=== PATIENT | female | born 1980 | race Caucasian/White ===

== ENCOUNTER 2018-03-01 10:05 | Emergency (ER) | payer OTHER ==
[~2018-03-01] VITALS: Ht 160 cm; Wt 75.3 kg
[~2018-03-01 10:05] MED LIST: ADDERALL 30 MG30 MG PO
[2018-03-01] MEDS ORDERED: ACETAMINOPHEN-1 EAC1 PO (12:02)
[2018-03-01] MEDS ORDERED: NAPROSYN500 MG PO (12:02)
[2018-03-01 12:14] VITALS: BP 125/79
== END 2018-03-01 12:15 | disposition home or self-care (01) ==
LOC: M.ERS 10:05
DX: S93.691A Other sprain of right foot, initial encounter (principal); Z98.890 Other specified postprocedural states; X50.1XXA Overexertion from prolonged static or awkward postures, initial encounter; Y93.64 Activity, baseball; Y92.89 Other specified places as the place of occurrence of the external cause; Y99.8 Other external cause status

== ENCOUNTER 2018-08-24 15:21 | Emergency (ER) | payer OTHER ==
[~2018-08-24] VITALS: Ht 157.5 cm; Wt 74.4 kg
[~2018-08-24 15:21] MED LIST changes: +ACETAMINOPHEN-1 EAC1 PO; +NAPROSYN500 MG PO
[2018-08-24] MEDS ORDERED: VENTOLIN HFA 1818 GM INH (16:17)
[2018-08-24] MEDS ORDERED: MEDROLDOSEPACK PO (16:17)
[2018-08-24] MEDS ORDERED: ALBUTEROL2.5 MG/31 INH (16:17)
[2018-08-24] MEDS ORDERED: TESSALON PERLE100 MG PO (16:20)
[2018-08-24 16:30] VITALS: BP 119/56
== END 2018-08-24 16:31 | disposition home or self-care (01) ==
LOC: M.ERS 15:21
DX: J20.9 Acute bronchitis, unspecified (principal); F17.210 Nicotine dependence, cigarettes, uncomplicated; Z98.890 Other specified postprocedural states

== ENCOUNTER 2020-08-09 09:14 | Emergency (ER) | payer OTHER ==
[~2020-08-09] VITALS: Ht 157.5 cm; Wt 80.7 kg
[~2020-08-09 09:14] MED LIST changes: +ALBUTEROL2.5 MG/31 INH; +MEDROLDOSEPACK PO; +TESSALON PERLE100 MG PO; +VENTOLIN HFA 1818 GM INH
[2020-08-09 10:11] VITALS: BP 120/80
== END 2020-08-09 10:12 | disposition home or self-care (01) ==
LOC: M.ERS 09:14
DX: L24.9 Irritant contact dermatitis, unspecified cause (principal); F17.210 Nicotine dependence, cigarettes, uncomplicated; Z98.890 Other specified postprocedural states